=== PATIENT | male | born 1980 | race Caucasian/White ===

== ENCOUNTER → 2020-06-26 | Outpatient (CLI) | payer BC | LOC: RAD 14:25 | DX: R11.2 Nausea with vomiting, unspecified (principal); R19.7 Diarrhea, unspecified; R10.31 Right lower quadrant pain | CPT/HCPCS: Q9967 ==

== ENCOUNTER 2024-03-27 08:50 | Emergency (ER) | payer BC ==
[~2024-03-27] VITALS: Ht 170.2 cm; Wt 92.9 kg
[2024-03-27] MEDS ORDERED: WELLBUTRIN XL300 M1 PO (08:56)
[2024-03-27] MEDS ORDERED: DULOXETINE60 MG PO (08:57)
[2024-03-27] MEDS ORDERED: DULOXETINE30 MG PO (08:57)
[2024-03-27] MEDS ORDERED: HYDROXYZINE HYD50 M1 PO (08:57)
[2024-03-27 09:30] LABS: BASO # 0.02 K/mm3 (0.02-0.10); EOS # 0.33 K/mm3 (0.04-0.40); EOS % 4.4 % (0.0-4.0); HEMATOCRIT 45.6 % (42.0-52.0); HEMOGLOBIN 15.7 g/dL (13.5-18.0); LYMPH# 2.03 K/mm3 (1.50-4.00); MEAN CELL VOLUME 86 fl (78-100); MEAN CORPUSCULAR HEMOGLOBIN 30 pg (27-31); MEAN CORPUSCULAR HGB CONC 34 g/dL (33-37); MEAN PLATELET VOLUME 8.3 fl (7.4-10.4); MONO # 0.53 K/mm3 (0.20-0.80); NEU # 4.59 K/mm3 (1.40-6.50); PLATELET COUNT 378 K/mm3 (130-400); RED BLOOD COUNT 5.32 M/mm3 (4.20-5.60); RED CELL DISTRIBUTION WIDTH 12.7 % (11.5-14.5); WHITE BLOOD COUNT 7.5 K/mm3 (4.8-10.8)
[2024-03-27 09:37] LABS: ALBUMIN 4.3 g/dL (3.5-5.0)
[2024-03-27 09:39] LABS: CALCIUM 9.5 mg/dL (8.3-10.5)
[2024-03-27 09:40] LABS: TOTAL PROTEIN 7.1 g/dL (6.4-8.3)
[2024-03-27 09:42] LABS: TOTAL BILIRUBIN 0.5 mg/dL (0.2-1.2)
[2024-03-27 09:54] LABS: D-DIMER 0.13 mg/L FEU (0.15-0.50)
[2024-03-27] MEDS ORDERED: Ketorolac 30 MG/ML VIAL IM ONE (10:45)
[2024-03-27 13:00] VITALS: BP 114/84
== END 2024-03-27 13:15 | disposition home or self-care (01) ==
LOC: ED 08:50
PROVIDERS: Physician Assistant
DX: R07.89 Other chest pain (principal); D72.829 Elevated white blood cell count, unspecified; R42 Dizziness and giddiness
CPT/HCPCS: J1885